=== PATIENT | female | born 1980 | race Caucasian/White ===

== ENCOUNTER 2019-02-20 10:09 | Outpatient (CLI) | payer BC ==
--- NOTE | 2019-02-20 11:50 | MMO ---
Bilateral MAMMO Bilat Diag [facility]. CLINICAL HISTORY: Patient is 38 years old and is seen for diagnostic exam and in the left breast at 1 o'clock. The patient has a history of Implants. VIEWS: The views performed were: bilateral craniocaudal with tomosynthesis; bilateral mediolateral oblique with tomosynthesis; and bilateral mediolateral with tomosynthesis. FILMS COMPARED: The present examination has been compared to a prior imaging study performed at [facility] on 02/20/2019. This study has been interpreted with the assistance of computer-aided detection. MAMMOGRAM FINDINGS: There are scattered fibroglandular densities. Normal implants are present. There are no suspicious masses, calcifications or areas of architectural distortion. The area of palpable concern on the left is mammographically and sonographically unremarkable. Negative imaging should not delay biopsy of a clinically suspicious finding. There are no suspicious masses, suspicious calcifications, or new areas of architectural distortion. IMPRESSION: THERE IS NO MAMMOGRAPHIC EVIDENCE OF MALIGNANCY. A ROUTINE FOLLOW-UP MAMMOGRAM AT AGE 42 IS RECOMMENDED. THE RESULTS OF THIS EXAM WERE SENT TO THE PATIENT. ACR BI-RADS Category 2 - Benign finding MAMMOGRAPHY NOTE: 1. A negative mammogram report should not delay a biopsy if a dominant of clinically suspicious mass is present. 2. Approximately 10% to 15% of breast cancers are not detected by mammography. 3. Adenosis and dense breasts may obscure an underlying neoplasm. Reported by: RA RADER MD Electonically Signed: [id number]
--- NOTE | 2019-02-20 12:47 | ULT ---
FOCUSED ULTRASOUND LEFT BREAST: DATE: 02/20/2019. COMPARISON: None. HISTORY: A 38-year-old female with a palpable abnormality in the upper outer left breast. FINDINGS: Focused ultrasound in the area of palpable concern is obtained. No mass or cyst. No abnormal shadow ing. No sonographic correlate for the area of palpable concern. Mammography performed on 02/20/2019 is unremarkable as well. IMPRESSION: Unremarkable focused ultrasound of the left breast. Negative imaging should not delay biopsy of a cl inically suspicious abnormality. POS: OFF
== END 2019-02-20 10:10 | disposition home or self-care (01) ==
LOC: BICMAMMO 10:09
PROVIDERS: ATTEND Family Medicine
DX: N63.21 Unspecified lump in the left breast, upper outer quadrant (principal)
CPT/HCPCS: 77066; G0279